=== PATIENT | female | born 1960 | race Caucasian/White ===

== ENCOUNTER → 2020-12-18 | Outpatient (CLI) | payer MEDICARE, OTHER ==
[~2020-12-18] MED LIST: ALLER-TEC10 MG PO; BACTRIM DS TAB1 EACH PO; BETAMETHASONE D50 G1 TP; BREZTRI AEROS10.7 GM INH; BUMETANIDE2 MG PO; CYMBALTA60 MG PO; DALIRESP500 MCG PO; ELIQUIS5 MG PO; ENULOSE10 GM/15 M PO; FERRO-TIME325 MG PO; HUMALOG100 UNIT/3 SC; HYDROCODON-ACE1 EAC6 PO; IPRAT-ALBUT 0.5-3 ML INH; K-DUR TAB 20 M20 MEQ PO; LANTUS SOL100 UNIT/1 SQ; LASIX40 MG PO; LEVAQUIN750 MG PO; LIPITOR80 MG PO; LOPRESSOR50 MG PO; MACROBID 100 M100 M1 PO; MAGNESIUM400 M2 PO; MECLIZINE HCL25 MG PO; MIRALAX17 GM PO; NEURONTIN600 MG PO; PRILOSEC OTC20 MG PO; PROAIR HFA8.5 GM INH; PROMETHAZINE HC25 M1 PO; SEREVENT DISKU50 MCG INH; SINGULAIR10 MG PO; SPIRIVA18 MCG INH; TOLTERODINE TART4 MG PO; TRAZODONE HCL100 MG PO; VICTOZA 1818 MG/3 ML SC; VITAMIN D3125 MCG PO; ZANAFLEX 4 MG TA4 MG PO
== END ==
LOC: CT 12-12 08:30
PROVIDERS: Nurse Practitioner Family
DX: M25.832 Other specified joint disorders, left wrist (principal); R22.32 Localized swelling, mass and lump, left upper limb
CPT/HCPCS: 36415; 73201; 80048; Q9967

== ENCOUNTER → 2021-01-01 | Outpatient (CLI) | payer MEDICARE, OTHER | LOC: OPSV2 09:00 | DX: M67.432 Ganglion, left wrist (principal); Z95.0 Presence of cardiac pacemaker; Z01.818 Encounter for other preprocedural examination | CPT/HCPCS: 71046; 87086; 93005 ==

== ENCOUNTER → 2021-01-07 | Day surgery (SDC) | payer MEDICARE, OTHER ==
[~2021-01-07] VITALS: Ht 162.6 cm; Wt 115.2 kg
== END | disposition home or self-care (01) ==
LOC: OR 05:58
DX: M67.432 Ganglion, left wrist (principal); I11.0 Hypertensive heart disease with heart failure; I50.9 Heart failure, unspecified; E78.5 Hyperlipidemia, unspecified; J44.9 Chronic obstructive pulmonary disease, unspecified; E11.40 Type 2 diabetes mellitus with diabetic neuropathy, unspecified; K21.9 Gastro-esophageal reflux disease without esophagitis; I25.2 Old myocardial infarction; I48.91 Unspecified atrial fibrillation; G47.30 Sleep apnea, unspecified; F41.9 Anxiety disorder, unspecified; E66.01 Morbid (severe) obesity due to excess calories; Z68.41 Body mass index [BMI] 40.0-44.9, adult; Z95.0 Presence of cardiac pacemaker; Z87.891 Personal history of nicotine dependence; Z88.5 Allergy status to narcotic agent; Z88.8 Allergy status to other drugs, medicaments and biological substances; Z91.09 Other allergy status, other than to drugs and biological substances; Z79.01 Long term (current) use of anticoagulants; Z79.4 Long term (current) use of insulin; Z79.899 Other long term (current) drug therapy
CPT/HCPCS: 81001; 82962; 87077; 87086; 87186; J0690; J1100; J1642; J2001; J2250; J2704; J3010; J7030; J7120

== ENCOUNTER 2022-04-06 10:38 | Inpatient (IN) | payer MEDICARE, OTHER ==
[~2022-04-06] VITALS: Ht 162.6 cm; Wt 96.2 kg
[~2022-04-06 10:38] MED LIST changes: -K-DUR TAB 20 M20 MEQ PO; +POTASSIUM CHLO20 ME1 PO; -TRAZODONE HCL100 MG PO; +TRAZODONE HCL150 MG PO
[2022-04-06 11:38] LABS: HEMOGLOBIN 8.7 gm/dl (12.3-15.3); RED BLOOD COUNT 3.3 M/UL (4.00-5.10); WHITE BLOOD COUNT 13.3 K/UL (4.5-11.0)
[2022-04-06 12:06] LABS: BUN/CREATININE RATIO 9 (0-10)
[2022-04-06] MEDS ORDERED: ISOSORBIDE MONO30 MG PO (15:08)
[2022-04-06] MEDS ORDERED: LASIX40 MG PO (15:12)
[2022-04-06] MEDS ORDERED: ELIQUIS5 MG PO (15:19)
[2022-04-06] MEDS ORDERED: MYRBETRIQ25 MG PO (15:19)
[2022-04-06] MEDS ORDERED: NITROGLYCERIN0.4 MG SL (15:27)
[2022-04-06] MEDS ORDERED: HYDROXYZINE HCL25 MG PO (15:29)
[2022-04-06] MEDS ORDERED: MIRALAX 119 GR119 GM PO (15:33)
[2022-04-06] MEDS ORDERED: VITAMIN E100 UNI2 PO (15:37)
[2022-04-07 04:30] LABS: HEMOGLOBIN 8.5 gm/dl (12.3-15.3); RED BLOOD COUNT 3.26 M/UL (4.00-5.10); WHITE BLOOD COUNT 10.6 K/UL (4.5-11.0)
[2022-04-07 04:54] LABS: BUN/CREATININE RATIO 13 (0-10)
[2022-04-07 19:04] LABS: CANDIDA ALBICANS Not Detected (Negative); CANDIDA KRUSEI Not Detected (Negative); CANDIDA TROPICALIS Not Detected (Negative); ESCHERICHIA COLI Not Detected (Negative); HAEMOPHILUS INFLUENZAE Not Detected (Negative); KLEBSIELLA OXYTOCA Not Detected (Negative); KLEBSIELLA PNEUMONIAE Not Detected (Negative); KPC-CARBAPENEM-RESISTANCE GENE Not Detected (Negative); PROTEUS Not Detected (Negative); PSEUDOMONAS AERUGINOSA Not Detected (Negative); SERRATIA MARCESANS Not Detected (Negative); STAPHYLOCOCCUS AUREUS Not Detected (Negative); STREP AGALACTIAE (GROUP B) Not Detected (Negative); STREP PYOGENES (GROUP A) Not Detected (Negative); STREPTOCOCCUS Not Detected (Negative); vanA/B (VANCOMYCIN RESIST GENE Not Detected (Negative)
[2022-04-07 20:25] LABS: STAPHYLOCOCCUS DETECTED (Negative)
[2022-04-08 05:48] LABS: HEMOGLOBIN 8.9 gm/dl (12.3-15.3); RED BLOOD COUNT 3.42 M/UL (4.00-5.10); WHITE BLOOD COUNT 9.8 K/UL (4.5-11.0)
[2022-04-08 06:13] LABS: BUN/CREATININE RATIO 9 (0-10)
[2022-04-08] MEDS ORDERED: VANCOMYCIN1.25 GM/12 IV (16:51)
[2022-04-08] MEDS ORDERED: INVANZ 1 GM VIAL1 GM IV (16:51)
[2022-04-08] MEDS ORDERED: COLACE100 MG PO (16:51)
[2022-04-08] MEDS ORDERED: HYDROCODON-ACE1 EAC4 PO (17:52)
[2022-04-09 03:31] LABS: BUN/CREATININE RATIO 8 (0-10)
[2022-04-09 03:42] LABS: HEMOGLOBIN 9.1 gm/dl (12.3-15.3); RED BLOOD COUNT 3.47 M/UL (4.00-5.10); WHITE BLOOD COUNT 9.4 K/UL (4.5-11.0)
== END 2022-04-09 12:40 | disposition home health service (06) | DRG 857 ==
LOC: ER1 10:38 → CDU 13:36 → M/S 13:36
PROVIDERS: Internal Medicine; Orthopaedic Surgery; Physician Assistant; ADMIT Internal Medicine
PROC: 0JBN0ZZ Excision of Right Lower Leg Subcutaneous Tissue and Fascia, Open Approach (ICD-10-PCS; principal; 2022-04-06 14:35)
DX: T81.49XA Infection following a procedure, other surgical site, initial encounter (principal); I13.0 Hypertensive heart and chronic kidney disease with heart failure and stage 1 through stage 4 chronic kidney disease, or unspecified chronic kidney disease; I48.20 Chronic atrial fibrillation, unspecified; J96.11 Chronic respiratory failure with hypoxia; K56.7 Ileus, unspecified; N39.0 Urinary tract infection, site not specified; K56.600 Partial intestinal obstruction, unspecified as to cause; I50.9 Heart failure, unspecified; J44.9 Chronic obstructive pulmonary disease, unspecified; N31.9 Neuromuscular dysfunction of bladder, unspecified; I25.10 Atherosclerotic heart disease of native coronary artery without angina pectoris; L89.152 Pressure ulcer of sacral region, stage 2; K21.9 Gastro-esophageal reflux disease without esophagitis; B95.62 Methicillin resistant Staphylococcus aureus infection as the cause of diseases classified elsewhere; E87.6 Hypokalemia; E11.40 Type 2 diabetes mellitus with diabetic neuropathy, unspecified; G47.00 Insomnia, unspecified; E03.9 Hypothyroidism, unspecified; R11.0 Nausea; N18.9 Chronic kidney disease, unspecified; E11.22 Type 2 diabetes mellitus with diabetic chronic kidney disease; D50.9 Iron deficiency anemia, unspecified; Y83.8 Other surgical procedures as the cause of abnormal reaction of the patient, or of later complication, without mention of misadventure at the time of the procedure; F41.9 Anxiety disorder, unspecified; Z88.8 Allergy status to other drugs, medicaments and biological substances; Z82.49 Family history of ischemic heart disease and other diseases of the circulatory system; Z87.891 Personal history of nicotine dependence; Z86.73 Personal history of transient ischemic attack (TIA), and cerebral infarction without residual deficits; Z79.01 Long term (current) use of anticoagulants; Z51.5 Encounter for palliative care; Z79.899 Other long term (current) drug therapy
CPT/HCPCS: 36415; 73562; 73590; 74019; 80053; 80202; 81001; 82962; 83036; 83605; 83735; 83880; 84132; 84443; 85025; 85027; 85610; 85652; 86140; 87040; 87070; 87075; 87077; 87086; 87150; 87186; 87205; 94640; 94660; 94664; 94760; 96374; 99284; J0690; J0692; J1100; J1335; J2001; J2250; J2270; J2405; J2550; J2704; J3010; J3370; J7030; J7070